=== PATIENT | female | born 1980 | race Native Hawaiian/Other Pacific Islander ===

== ENCOUNTER 2020-11-26 01:51 | Emergency (ER) | payer OTHER ==
[~2020-11-26] VITALS: Ht 160 cm; Wt 69.4 kg
[2020-11-26 01:55] VITALS: BP 114/84; TEMP 97.9
== END 2020-11-26 02:27 | disposition still patient (30) ==
LOC: ED 01:51
DX: S00.81XA Abrasion of other part of head, initial encounter (principal); Y04.2XXA Assault by strike against or bumped into by another person, initial encounter; Y92.89 Other specified places as the place of occurrence of the external cause; Z53.21 Procedure and treatment not carried out due to patient leaving prior to being seen by health care provider
CPT/HCPCS: 99283

== ENCOUNTER 2021-02-27 11:18 | Emergency (ER) | payer OTHER | END 2021-02-27 12:09 | disposition home or self-care (01) | LOC: ED 11:18 | DX: Z53.21 Procedure and treatment not carried out due to patient leaving prior to being seen by health care provider (principal) | CPT/HCPCS: 99281 ==

== ENCOUNTER 2021-02-27 13:51 | Emergency (ER) | payer OTHER ==
[~2021-02-27] VITALS: Ht 160 cm; Wt 69.4 kg
[2021-02-27 13:55] VITALS: BP 125/87; TEMP 98
[2021-02-27 14:50] LABS: PLATELET COUNT 285 K/uL (152-353)
[2021-02-27 15:07] LABS: POTASSIUM 3.6 mmol/L (3.6-5.2)
== END 2021-02-27 15:30 | disposition home or self-care (01) ==
LOC: ED 13:51
PROVIDERS: Hospitalist
DX: K59.09 Other constipation (principal); F15.10 Other stimulant abuse, uncomplicated
CPT/HCPCS: 36415; 80053; 80307; 81000; 81025; 83690; 85027; 99283

== ENCOUNTER 2021-03-01 02:50 | Emergency (ER) | payer OTHER ==
[~2021-03-01] VITALS: Ht 160 cm; Wt 68.0 kg
[2021-03-01 03:00] VITALS: BP 117/81; TEMP 98.4
[2021-03-01 03:34] LABS: PLATELET COUNT 278 K/uL (152-353)
[2021-03-01 03:38] LABS: POTASSIUM 3.9 mmol/L (3.6-5.2)
== END 2021-03-01 04:00 | disposition home or self-care (01) ==
LOC: ED 02:50
PROVIDERS: Emergency Medicine
DX: F19.10 Other psychoactive substance abuse, uncomplicated (principal); F41.8 Other specified anxiety disorders
CPT/HCPCS: 36415; 80048; 80307; 85027; 99283

== ENCOUNTER 2021-07-20 10:56 | Emergency (ER) | payer OTHER ==
[~2021-07-20] VITALS: Ht 160 cm; Wt 68.0 kg
[2021-07-20 11:00] VITALS: TEMP 97.6
[2021-07-20 11:55] VITALS: BP 128/90
== END 2021-07-20 11:55 | disposition home or self-care (01) ==
LOC: ED 10:56
DX: H65.192 Other acute nonsuppurative otitis media, left ear (principal); H60.8X2 Other otitis externa, left ear; F17.210 Nicotine dependence, cigarettes, uncomplicated
CPT/HCPCS: 80307; 81000; 81025; 99283

== ENCOUNTER 2021-07-21 03:17 | Emergency (ER) | payer OTHER ==
[~2021-07-21] VITALS: Ht 160 cm; Wt 61.7 kg
[2021-07-21 03:17] VITALS: BP 130/91; TEMP 97.2
== END 2021-07-21 04:25 | disposition home or self-care (01) ==
LOC: ED 03:17
DX: S40.212A Abrasion of left shoulder, initial encounter (principal); S40.211A Abrasion of right shoulder, initial encounter; S40.012A Contusion of left shoulder, initial encounter; S40.011A Contusion of right shoulder, initial encounter; F19.10 Other psychoactive substance abuse, uncomplicated; X58.XXXA Exposure to other specified factors, initial encounter; Y92.89 Other specified places as the place of occurrence of the external cause
CPT/HCPCS: 80307; 99282

== ENCOUNTER 2021-07-23 11:41 | Outpatient (CLI) | payer OTHER | END 2021-07-23 20:01 | disposition home or self-care (01) | LOC: CT 11:41 | PROVIDERS: ATTEND Registered Nurse | DX: G44.52 New daily persistent headache (NDPH) (principal); R07.81 Pleurodynia ==